=== PATIENT | male | born 1960 | race Asian ===

== ENCOUNTER → 2024-09-14 08:15 | Outpatient (CLI) | payer OTHER, SELFPAY ==
--- NOTE | 2024-09-14 08:17 | DI.US.S_ITS ---
PROCEDURE: US ABD AORTA ANEURYSM SCREEN INDICATIONS: screening for AAA TECHNIQUE: Real time scanning was performed of the aorta and iliac arteries, with image documentation. COMPARISON: None. FINDINGS: Aorta: Proximal aortic diameter measures 2.2 cm. Mid-aorta measures 1.6 cm. Distal aortic diameter is 1.7 cm. Iliac arteries: Right common iliac artery measures 1.0 cm. Left common iliac artery measures 1.0 cm. Incidental note of fat containing umbilical hernia with wall defect measuring 1.2 cm. It demonstrates near complete reduce ability. IMPRESSION: No aortic aneurysmal dilation. Dictated by: Iris Carolina M.D. on 09/14/2024 at 14:16 Approved by: Iris Carolina M.D. on 09/14/2024 at 14:17
== END ==
PROVIDERS: PCP Family Medicine; Referring Provider Family Medicine; Visit Provider Family Medicine
DX: Z13.6 Encounter for screening for cardiovascular disorders (principal); K42.9 Umbilical hernia without obstruction or gangrene
CPT/HCPCS: 76706